=== PATIENT | male | born 2000 | race Caucasian/White ===

== ENCOUNTER 2021-07-06 17:30 | Emergency (ER) | payer OTHER ==
[~2021-07-06] VITALS: Ht 162.6 cm; Wt 72.7 kg
[2021-07-06] MEDS ORDERED: LIDOCAINE/PF 1% 2 ML VIAL IM ONE (18:30)
[2021-07-06] MEDS ORDERED: CefTRIAXone SODIUM 1 GM/VIAL IM ONE (18:30)
[2021-07-06 18:35] LABS: APPEARANCE,URINE CLEAR (CLEAR); BILIRUBIN,URINE NEGATIVE (NEGATIVE); GLUCOSE, URINE (UA) NEGATIVE (NEGATIVE); KETONES,URINE TRACE mg/dL (NEGATIVE); LEUKOCYTE ESTERASE ,URINE LARGE (NEGATIVE); NITRATE,URINE NEGATIVE (NEGATIVE); OCCULT BLOOD,URINE SMALL (NEGATIVE); PROTEIN,URINE POS 1+ (NEGATIVE)
[2021-07-06 18:45] LABS: WBC,URINE 51-100 /HPF (0-5)
[2021-07-06 18:46] LABS: BACTERIA,URINE None Seen /HPF (None Seen)
[2021-07-06] MEDS ORDERED: MUPI1OIN5 TP (18:53)
[2021-07-06] MEDS ORDERED: DOXY-354 PO (18:53)
[2021-07-06] MEDS ORDERED: DiphenhydrAMINE HCL 50 MG/ML VIAL IVP ONE (19:45)
[2021-07-06] MEDS ORDERED: MethylPREDNISolone SOD SUCC 125 MG/2 ML VIAL IVP ONE (19:45)
[2021-07-06] MEDS ORDERED: DIPH25CA85 PO (20:30)
[2021-07-06 20:48] VITALS: BP 129/70
== END 2021-07-06 20:56 | disposition home or self-care (01) ==
LOC: EMS 17:34
DX: N48.1 Balanitis (principal); R36.9 Urethral discharge, unspecified
CPT/HCPCS: 81001; 87086; 87491; 87591; 96372; 96374; 96375; 99284; J0696; J1200; J2930; J3490

== ENCOUNTER 2021-09-14 13:27 | Emergency (ER) | payer OTHER ==
[~2021-09-14] VITALS: Ht 162.6 cm; Wt 74.1 kg
[~2021-09-14 13:27] MED LIST: DIPH25CA85 PO; DOXY-354 PO; MUPI1OIN5 TP
[2021-09-14 14:33] LABS: BILIRUBIN,URINE NEGATIVE (NEGATIVE); GLUCOSE, URINE (UA) NEGATIVE (NEGATIVE); KETONES,URINE 40-60 mg/dL (NEGATIVE); LEUKOCYTE ESTERASE ,URINE MODERATE (NEGATIVE); NITRATE,URINE NEGATIVE (NEGATIVE); OCCULT BLOOD,URINE TRACE (NEGATIVE); PROTEIN,URINE TRACE mg/dL (NEGATIVE); SPECIFIC GRAVITIY, URINE 1.025 (1.003-1.030); UROBILINOGEN,URINE <=1.0 mg/dL (<=1.0)
[2021-09-14 14:41] LABS: APPEARANCE,URINE HAZY (CLEAR); BACTERIA,URINE Few /HPF (None Seen); RBC,URINE 0-2 /HPF (0-2)
[2021-09-14] MEDS ORDERED: GENTAMICIN SULFATE 40 MG/ML 2 ML VIAL IM ONE (15:15)
[2021-09-14] MEDS ORDERED: METR500 PO (15:34)
[2021-09-14 16:31] VITALS: BP 118/67
== END 2021-09-14 17:15 | disposition home or self-care (01) ==
LOC: EMS 13:29
DX: N34.2 Other urethritis (principal); Z88.1 Allergy status to other antibiotic agents
CPT/HCPCS: 81001; 87086; 87255; 87491; 87591; 96372; 99283; J1580